=== PATIENT | male | born 1970 | race Caucasian/White ===

== ENCOUNTER 2018-09-20 18:16 | Inpatient (IN) ==
[2018-09-20] MEDS ORDERED: DIPHTHERIA/TETANUS ADULT VACCINE 0.5 ML SYRINGE IM ONE (18:24)
[2018-09-20] MEDS ORDERED: LACTATED RINGERS 1,000 ML IV STA (18:24)
[2018-09-20 18:32] LABS: Basophils % 0.3 % (0.0-0.8); Eosinophils # 0.1 10*3/uL (0.0-0.87); Eosinophils % 0.5 % (0.00-10.9); Hematocrit 38.5 VOL% (42.0-52.0); Immature Granulocytes % 0.4 %; Immature Granulocytes Absolute 0.05 #; Lymphocytes # 0.8 10*3/uL (1.4-4.0); Lymphocytes % 6.4 % (21.2-54.2); Mean Corpuscular HGB Conc 33.8 GM/DL (32-36); Mean Corpuscular Volume 86.7 FL (87-102); Mean Platelet Volume 8.7 FL (9.6-12.0); Monocytes % 7.9 % (1.7-12.7); Neutrophils % 84.5 % (38.7-73.9); Platelet Count 304 T/CUMM (130-400); Red Blood Count 4.44 MC/CUMM (3.8-5.5); Red Cell Distribution Width 12.7 % (9.3-17.3); White Blood Count 12.2 T/CUMM (4-12)
[2018-09-20 18:42] LABS: INR 1.1; PT Patient Result 11.6 SECS; Partial Thromboplastin Time 24.5 SECS (0-40)
[2018-09-20 18:49] LABS: Apearance,Urine CLEAR (Clear); Bacteria,Urine Occasional /HPF (Few); Bilirubin,Urine Negative (Negative); Blood, Urine Negative (Negative); Glucose,Urine (UA) 50 mg/dL (Negative); Hyaline Casts,Urine 33 /LPF (0-3); Ketones,Urine 20 mg/dL (Negative); Mucus,Urine Occasional /LPF (Occasional); Nitrite,Urine Negative (Negative); Protein,Urine Negative; RBC,Urine 1 /HPF (0-4); Squamous Epithelial Cell,Urine Occasional /HPF (0-10); Urine Color Yellow (Yellow); Urine Specific Gravity 1.008 (1.001-1.035); Urine Urobilinogen < 2.0 EU/DL (0.2-1.0); WBC,Urine 1 /HPF (0-6)
[2018-09-20] MEDS ORDERED: hydrALAZINE 20 MG/1 ML VIAL IV STA ×2 (18:55→19:10)
[2018-09-20 18:58] LABS: Alanine Aminotransferase 34 U/L (16-61); Albumin 3.6 G/DL (3.4-5.0); Alkaline Phosphatase 48 U/L (45-117); Amylase 47 U/L (25-115); Aspartate Amino Transferase 21 U/L (0-37); Blood Urea Nitrogen 8 MG/DL (7-18); Calcium 8.2 MG/DL (8.5-10.1); Glucose 152 MG/DL (74-106); Osmolality,Calculated 262.7 MOS/KG (273-304); Total Protein 6.4 G/DL (6.4-8.3); Troponin I < 0.015 NG/ML (0.00-0.045)
[2018-09-20 19:11] LABS: Cannabinoid Screen,Urine Negative (Negative)
[2018-09-20 19:12] LABS: Barbiturates Screen,Urine Negative (Negative); Benzodiazepines Screen,Urine Negative (Negative); Opiate Screen,Urine Negative (Negative); Phencyclidine Screen,Urine Negative (Negative)
[2018-09-20] MEDS ORDERED: NITROGLYCERIN 2% OINT 1 INCH/GM PACK TOP ONE (20:04)
[2018-09-20] MEDS ORDERED: ONDANSETRON 4 MG/2 ML VIAL IV PRN (20:49)
[2018-09-20] MEDS ORDERED: ACETAMINOPHEN 325 MG TABLET PO PRN (20:49)
[2018-09-20] MEDS ORDERED: MORPHINE 4 MG/1 ML VIAL IV PRN (20:49)
[2018-09-20] MEDS ORDERED: PROPOFOL 200 MG/20 ML VIAL IV ONE (21:12)
[2018-09-20] MEDS ORDERED: fentaNYL 100 MCG/2 ML VIAL ONE (21:12)
[2018-09-20] MEDS ORDERED: PHENYLEPHRINE DRIP 20 MG/250 ML PREMIX IV ONE (21:12)
[2018-09-20] MEDS ORDERED: SEVOFLURANE 1 UNIT/15 MINUTE INH ONE (21:12)
[2018-09-20] MEDS ORDERED: MIDAZOLAM 2 MG/2 ML VIAL ONE (21:12)
[2018-09-20] MEDS ORDERED: DEXAMETHASONE 4 MG/1 ML VIAL ONE ×2 (21:13→21:16)
[2018-09-20] MEDS ORDERED: ONDANSETRON 4 MG/2 ML VIAL ONE (21:13)
[2018-09-20] MEDS ORDERED: PHENYLEPHRINE 1 MG/10 ML SYRINGE IV ONE (21:13)
[2018-09-20] MEDS ORDERED: GLYCOPYRROLATE 0.4 MG/2 ML VIAL ONE (21:13)
[2018-09-20] MEDS ORDERED: ROCURONIUM 100 MG/10 ML VIAL IV ONE (21:14)
[2018-09-20] MEDS ORDERED: SUCCINYLCHOLINE 200 MG/10 ML VIAL ONE (21:14)
[2018-09-20] MEDS ORDERED: LACTATED RINGERS 1,000 ML IV ONE (21:14)
[2018-09-20] MEDS ORDERED: NEOSTIGMINE 10 MG/10 ML VIAL ONE (21:14)
[2018-09-20] MEDS: POTASSIUM CHLORIDE RIDER 10 MEQ in PREMIX 1 EACH IV SCH ×2 (22:04→23:06)
[2018-09-20] MEDS: ceFAZolin 1,000 MG in SYRINGE 1 EACH IV SCH (22:04)
[2018-09-20] MEDS: LACTATED RINGERS 1,000 ML IV SCH (22:04)
[2018-09-21 05:29] LABS: Basophils % 0.1 % (0.0-0.8); Eosinophils % 0.1 % (0.00-10.9); Hematocrit 25.2 VOL% (42.0-52.0); Hemoglobin 8.7 GM/DL (14.0-18.0); Immature Granulocytes % 0.4 %; Immature Granulocytes Absolute 0.03 #; Lymphocytes # 0.6 10*3/uL (1.4-4.0); Lymphocytes % 8.2 % (21.2-54.2); Mean Corpuscular HGB Conc 34.5 GM/DL (32-36); Mean Corpuscular Volume 86.6 FL (87-102); Mean Platelet Volume 9.2 FL (9.6-12.0); Monocytes % 9.8 % (1.7-12.7); Neutrophils % 81.4 % (38.7-73.9); Platelet Count 244 T/CUMM (130-400); Red Blood Count 2.91 MC/CUMM (3.8-5.5); Red Cell Distribution Width 12.9 % (9.3-17.3); White Blood Count 7.7 T/CUMM (4-12)
[2018-09-21] MEDS: ceFAZolin 1,000 MG in SYRINGE 1 EACH IV SCH ×3 (05:43→20:51)
[2018-09-21 06:06] LABS: Calcium 7.7 MG/DL (8.5-10.1); Osmolality,Calculated 271.8 MOS/KG (273-304)
[2018-09-21] MEDS: LACTATED RINGERS 1,000 ML IV SCH ×3 (09:02→20:51)
[2018-09-21] MEDS: PANTOPRAZOLE 40 MG TABLET PO SCH (09:58)
[2018-09-21 11:04] LABS: Hematocrit 24.2 VOL% (42.0-52.0); Hemoglobin 8.1 GM/DL (14.0-18.0)
[2018-09-21] MEDS: CAPTOPRIL 12.5 MG TABLET PO SCH ×2 (17:59→20:51)
[2018-09-21] MEDS: CARVEDILOL 12.5 MG TABLET PO SCH ×2 (18:00→22:06)
[2018-09-22] MEDS: CARVEDILOL 12.5 MG TABLET PO SCH ×2 (05:05→10:11)
[2018-09-22] MEDS: ceFAZolin 1,000 MG in SYRINGE 1 EACH IV SCH ×2 (05:10→14:35)
[2018-09-22] MEDS: LACTATED RINGERS 1,000 ML IV SCH ×2 (05:15→13:59)
[2018-09-22 06:09] LABS: Basophils % 0.7 % (0.0-0.8); Eosinophils # 0.2 10*3/uL (0.0-0.87); Eosinophils % 4.4 % (0.00-10.9); Hematocrit 25.5 VOL% (42.0-52.0); Hemoglobin 8.2 GM/DL (14.0-18.0); Immature Granulocytes % 0.2 %; Immature Granulocytes Absolute 0.01 #; Lymphocytes % 22.1 % (21.2-54.2); Mean Corpuscular HGB Conc 32.2 GM/DL (32-36); Mean Corpuscular Volume 90.1 FL (87-102); Mean Platelet Volume 9.3 FL (9.6-12.0); Monocytes % 12.7 % (1.7-12.7); Neutrophils % 59.9 % (38.7-73.9); Platelet Count 209 T/CUMM (130-400); Red Blood Count 2.83 MC/CUMM (3.8-5.5); Red Cell Distribution Width 13.1 % (9.3-17.3); White Blood Count 4.6 T/CUMM (4-12)
[2018-09-22 06:44] LABS: Albumin 2.8 G/DL (3.4-5.0); Bilirubin,Total 0.6 MG/DL (0.2-1.0); Calcium 7.9 MG/DL (8.5-10.1); Osmolality,Calculated 283.8 MOS/KG (273-304); Total Protein 5.1 G/DL (6.4-8.3)
[2018-09-22] MEDS: CAPTOPRIL 12.5 MG TABLET PO SCH (10:10)
[2018-09-22] MEDS: PANTOPRAZOLE 40 MG TABLET PO SCH (10:11)
[2018-09-22 11:49] VITALS: BP 145/81
== END 2018-09-22 15:10 | DRG 580 ==
LOC: EDUNIT# → N.ED 18:16 → N.CC 19:51 → N.EDINP 20:49 → N.CC 21:06 → N.3E 09-22 01:42
PROVIDERS: ADMIT Surgery; ATTEND Surgery